=== PATIENT | female | born 1990 | race Caucasian/White ===

== ENCOUNTER 2016-12-30 18:13 | Emergency (ER) | payer OTHER ==
--- NOTE | ~2016-12-30 | ER ---
PATIENT'S NAME: GIAN COMBS [facility] AGE: 26 Y [address] ROOM: [place] [id number] LOCATION: [facility] ADMIT DATE: 12/30/2016 ER/Outpatient Report DISCHARGE DATE: FAMILY PHYSICIAN: Arabella Peters MD ATTENDING PHYSICIAN: Ernesto Jhaveri Admission date and time documented on the medical record. I saw the patient at 1825 hours. CHIEF COMPLAINT: Shortness of breath, trouble breathing. HISTORY OF PRESENT ILLNESS: The patient is a 26-year-old female, who woke up around 0600 hours this morning with some shortness of breath. She had a coarse productive cough starting this morning. She had some chest pain especially on inspiration. She had a temperature up to 101.4. Afebrile here in the emergency department, 98.7. She was tachypneic with a respiratory rate of 24. She was little bit tachy with a pulse rate of 107. No abdominal pain, nausea, vomiting, or diarrhea. No urinary frequency, urgency, or dysuria. No lightheadedness, dizziness, syncope, or near syncope. No fall or trauma. No headache, eyes, ears, nose, throat, neck, or spine pain. No history of neuro changes, psych issues, endocrine problems. HOME MEDICATIONS: 1. Lexapro. 2. control pill. ALLERGIES: NONE. SOCIAL HISTORY: The patient smokes half pack of cigarettes per day. Occasional intake of alcohol. PAST MEDICAL HISTORY: Scheuermann disease, tobacco abuse. PAST SURGICAL HISTORY: Hemiarthroplasty, left hip. REVIEW OF SYSTEMS: All systems reviewed by me are negative with the exception of those discussed in the history of present illness. PATIENT'S NAME: GIAN COMBS [facility] AGE: 26 Y [address] ROOM: [place] [address] LOCATION: [facility] ADMIT DATE: 12/30/2016 ER/Outpatient Report DISCHARGE DATE: FAMILY PHYSICIAN: Arabella Peters MD ATTENDING PHYSICIAN: Ernesto Jhaveri PHYSICAL EXAMINATION: VITAL SIGNS: Temperature 98.7 tympanic, pulse 107, respirations 24, blood pressure 124/72, O2 saturation on room air is 98%. HEAD: Normocephalic. Eyes, clear. Ears, clear TMs bilaterally. NOSE: Clear. THROAT: Clear. Mucous membranes moist. Teeth, jaw intact. NECK: No nuchal rigidity. No findings of adenopathy. No tenderness. SPINE: Nontender. No deformity. LUNGS: Fairly good air flow. No rales, rhonchi, or wheezes. She is tachypneic, taking short rapid shallow breaths. HEART: Tachy, pulses palpable. No chest wall or ribcage pain to palpation. ABDOMEN: Soft, nondistended, nontender. Good bowel tones. No organomegaly or abnormal mass palpable. EXTREMITIES: Without peripheral edema, cyanosis, or deformity. NEUROVASCULAR: Intact. SKIN: Clear. No skin eruptions or rash. LABORATORY DATA AND X-RAY: Chest x-ray showed no acute infiltrate or changes. We will review chest x-ray with Radiology. CMS was normal except for a low CO2 content of 21. Troponin was less than 0.04. CRP was 4.16. White count was 11,300, 80 segs, 16 lymphs, 4 monos, hemoglobin is 13.1 with hematocrit 39.7, platelet count is 251,000. Venous pH was 7.51. D-dimer was 0.52. IMPRESSION: 1. Shortness of breath with hyperventilation, bronchospasm, etiology uncertain. 2. Anxiety. 3. Tobacco abuse. PLAN: The patient was given IV Solu-Medrol 125 mg plus Ativan 1 mg IV in the emergency department. I gave her DuoNeb respiratory nebulizer treatment. With that therapy, she did markedly better here in the emergency department with her breathing. Dismissed home. Observation. Activity as tolerated. Continue present home medications and care. Fluids and diet as tolerated. Medrol Dosepak take as directed. Albuterol oral inhaler with AeroChamber 2 puffs 4 times a day and as needed. Follow up with personal physician as needed. Discussion ensued with the patient concerning my findings and recommendations, she understands. PATIENT'S NAME: GIAN COMBS [facility] AGE: 26 Y [address] ROOM: [place], [place] [address] LOCATION: [facility] ADMIT DATE: 12/30/2016 ER/Outpatient Report DISCHARGE DATE: FAMILY PHYSICIAN: Arabella Peters MD ATTENDING PHYSICIAN: Ernesto Jhaveri MD LUIS ORTEGA/basim /[id number] d: 12/30/16 2142 t: 01/08/17 1825, OUTPATIENT REPORT
[~2016-12-30 18:13] MED LIST: BENADRYL25 MG PO; CRANBERRY500 M3 PO; MOTRIN800 MG PO; PERCOCET 5-3251 EACH PO; PRENATAL 1+1)(P1 TAB PO; SURFAK240 MG PO
[2016-12-30 18:39] LABS: BICARBONATE 23.1 mmol/L (18.0-23.0); PCO2 29 mmHg (35-45); PO2 85 mmHg (80-90)
[2016-12-30 18:40] LABS: BASOPHIL % 0.2 %; EOSINOPHIL % 0.2 %; HEMATOCRIT 39.7 % (33.0-46.0); HEMOGLOBIN 13.1 g/dL (11.0-15.0); IMMATURE GRANULOCYTE % 0.3 %; LYMPHOCYTE # 1.8 K/uL (0.8-4.0); LYMPHOCYTE % 15.5 %; MCH 28.9 pg (27.0-34.0); MCV 87.6 fl (83.0-98.0); MONOCYTE # 0.5 K/uL (0.0-1.0); MONOCYTE % 4.3 %; MPV 9.7 fl (9.4-12.4); NEUTROPHIL % 79.5 %; NRBC % 0 /100WBC (0-0.00); PLATELET COUNT 251 K/uL (150-450); RBC 4.53 M/uL (3.50-5.00); RDW-CV 13.1 % (11.9-14.6); WBC 11.3 K/uL (4.0-11.0)
[2016-12-30 19:05] LABS: ALBUMIN 3.6 gm/dL (3.5-5.0); ALK PHOS 74 IU/L (33-138); ALT 13 IU/L (12-78); BLOOD UREA NITROGEN 9 mg/dL (6-24); CALCIUM 8.8 mg/dL (8.5-10.5); CHLORIDE 110 mMol/L (96-110); CO2 21 mMol/L (22-32); CREATININE 0.7 mg/dL (0.5-1.1); ESTIMATED GFR (MDRD EQUATION) > 60; SODIUM 141 mMol/L (135-145); TOTAL BILIRUBIN 0.3 mg/dL (0.0-1.5); TOTAL PROTEIN 7.3 g/dL (6.0-8.4)
[2016-12-30 19:07] LABS: AST 14 IU/L (10-40)
== END 2016-12-30 20:07 | disposition disaster alternative care site (69) ==
LOC: GMED 18:13
PROVIDERS: Emergency Medicine
DX: J98.01 Acute bronchospasm (principal); R06.4 Hyperventilation; F41.9 Anxiety disorder, unspecified; F17.210 Nicotine dependence, cigarettes, uncomplicated; Z79.3 Long term (current) use of hormonal contraceptives; Z79.899 Other long term (current) drug therapy; Z96.642 Presence of left artificial hip joint
CPT/HCPCS: J2060; J2930